=== PATIENT | male | born 2000 | race Two or more races ===

== ENCOUNTER 2023-03-30 23:34 | Emergency (ER) | payer MEDICAID ==
[2023-03-31] MEDS ORDERED: Cephalexin 500 MG Cap PO ONE (02:00)
[2023-03-31] MEDS ORDERED: Ibuprofen 600 MG Tab PO ONE (02:00)
[2023-03-31] MEDS ORDERED: Acetaminophen/HYDROcodone 325-10 MG Tab PO ONE (02:00)
[2023-03-31] MEDS ORDERED: Sulfamethoxazole/Trimethoprim 800-160 MG Tab PO ONE (02:00)
== END 2023-03-31 03:00 | disposition home or self-care (01) ==
LOC: MW.ED 23:34
DX: L05.01 Pilonidal cyst with abscess (principal); Z79.899 Other long term (current) drug therapy
CPT/HCPCS: 10080; 99282; A9270; 10060; 99283